=== PATIENT | female | born 1975 | race African-American/Black ===

== ENCOUNTER 2017-02-09 16:16 | Emergency (ER) | payer OTHER ==
[~2017-02-09] VITALS: Ht 165.1 cm; Wt 62.4 kg
[2017-02-09 16:42] VITALS: BP 156/89
[2017-02-09 17:14] LABS: BASOPHILS # (AUTO) 0.3 K/uL (0.00-0.22); EOSINOPHILS # (AUTO) 0.1 K/uL (0-0.4); HEMATOCRIT 37.7 % (36-48); HEMOGLOBIN 12.4 g/dL (12.0-16.0); LYMPHOCYTES # (AUTO) 2.5 K/uL (2.5-16.5); MEAN CORPUSCULAR HEMOGLOBIN 28 pg (27-31); MEAN CORPUSCULAR HGB CONC 33 g/dL (33-37); MEAN CORPUSCULAR VOLUME 84 fL (80-94); MONOCYTES # (AUTO) 0.7 K/uL (0.8-1.0); NEUTROPHILS # (AUTO) 3.9 K/uL (1.8-7.7); PLATELET COUNT (AUTO) 269 K/uL (140-450); RED BLOOD CELL COUNT(AUTO) 4.48 MIL/uL (4.20-5.40); RED CELL DISTRIBUTION WIDTH 18.7 % (11.6-13.7); WHITE BLOOD COUNT (AUTO) 7.5 K/uL (4.8-10.8)
[2017-02-09 17:34] LABS: ANION GAP 12.2 (8-16); CARBON DIOXIDE 27.8 mmol/L (21-32); CREATININE 0.8 mg/dL (0.6-1.3)
[2017-02-09 17:40] LABS: ALBUMIN 3.9 g/dL (3.4-5.0); TOTAL BILIRUBIN 0.4 mg/dL (0.0-1.0)
--- NOTE | 2017-02-09 18:38 | NUR ---
PATIENT OT BED 7 Addendum: 02/09/17 at 1844 by JENNIFER PATIENT AMBULATED TO BED 7.
--- NOTE | 2017-02-09 18:40 | NUR ---
41/F C/O N/V/D & R ABDOMINAL PAIN X YESTERDAY. HX: CROHN'S, ASTHMA, HTN, TIA, TOXIC SHOCK SYNDROME, TUBALIGATION. SKIN IS PINK/WARM/DRY; AAOX4 WITH EVEN AND STEADY GAIT; LUNGS CLEAR BL; PT DENIES ANY FEVER, CP, SOB, OR COUGH AT THIS TIME; PATIENT STATES PAIN OF 7/10 AT THIS TIME; PATIENT POSITIONED FOR COMFORT; HOB ELEVATED; BEDRAILS UP X2; BED DOWN. ER MD MADE AWARE OF PT STATUS.
--- NOTE | 2017-02-09 18:40 | NUR ---
Note undone in EDM - 02/09/17 at 1916 by [email or web address] 41/F C/O N/V/D & R ABDOMINAL PAIN . HX: CROHN'S, ASTHMA, HTN, TIA, TOXIC SHOCK SYNDROME, TUBALIGATION. SKIN IS PINK/WARM/DRY; AAOX4 WITH EVEN AND STEADY GAIT; LUNGS CLEAR BL; PT DENIES ANY FEVER, CP, SOB, OR COUGH AT THIS TIME; PATIENT STATES PAIN OF 7/10 AT THIS TIME; PATIENT POSITIONED FOR COMFORT; HOB ELEVATED; BEDRAILS UP X2; BED DOWN. ER MADE AWARE OF PT STATUS.
--- NOTE | 2017-02-09 19:16 | NUR ---
Pt report given to AMIE REDD. Transfer of care at this time.
--- NOTE | 2017-02-09 19:17 | NUR ---
REPORT RECEIVED FROM AMIE BURGESS
[2017-02-09] MEDS ORDERED: KETOROLAC 15 MG/ML VIAL IVP ONE (19:40)
[2017-02-09] MEDS ORDERED: methylPREDNISolone SS 125 MG in WATER STERILE 2 ML IV ONE (20:40)
[2017-02-09] MEDS ORDERED: NACL 0.9% 1,000 ML IV ONE (20:40)
--- NOTE | 2017-02-09 22:10 | NUR ---
Patient discharged with v/s stable. Written and verbal after care instructions given and explained. Patient verbalized understanding. Ambulatory with steady gait. All questions addressed prior to discharge. Advised to follow up with PMD.
[2017-02-09 22:13] VITALS: BP 126/81
== END 2017-02-09 22:18 | disposition home or self-care (01) ==
LOC: MED 16:16
DX: N20.0 Calculus of kidney (principal); J45.909 Unspecified asthma, uncomplicated; I10 Essential (primary) hypertension; A48.3 Toxic shock syndrome; Z86.73 Personal history of transient ischemic attack (TIA), and cerebral infarction without residual deficits; Z88.5 Allergy status to narcotic agent; Z98.51 Tubal ligation status
CPT/HCPCS: 36415; 74176; 80053; 81002; 81025; 83690; 85025; 96361; 96374; 96375; 99285; J1885; J2930; J7030